=== PATIENT | male | born 1960 | race Caucasian/White ===

== ENCOUNTER 2019-07-03 16:42 | Observation (INO) | payer MEDICARE, SELFPAY ==
[2019-07-03] VITALS (16 sets, daily range): BP systolic 177–190; BP diastolic 93–112; PULSE 77–85; RESP 16–18; TEMP 36.2–36.6; O2SAT 93–99; BMI 35.0
--- NOTE | ~2019-07-03 | CT_ITS ---
EXAMINATION: CT abdomen pelvis wo con DATE: 07/03/2019 17:40 INDICATION: Left flank pain TECHNIQUE: Computed tomography (CT) of the abdomen and pelvis was performed without intravenous contr ast. The dose-length product (DLP) was 1306.16 mGy-cm. Automated exposure control and iterative recon struction technique were employed. COMPARISON: None FINDINGS: There is mild emphysema of the visualized lung bases. A calcified nodule of the left lower lobe is consistent with old granulomatous disease. The heart size is normal. There is a 2.2 cm cyst o f the left hepatic lobe. The spleen, pancreas, gallbladder, and adrenal glands are normal. The kidney s are unremarkable. No stones are identified in the kidneys, ureters, or bladder. There is no hydrone phrosis or hydroureter. No pathologically enlarged abdominal or pelvic lymph nodes are identified. Th ere is no free intraperitoneal gas or evidence of bowel obstruction. The appendix is normal. There is a tiny focus of inflammatory stranding adjacent to the descending colon at the level of the splenic flexure. There is moderate lumbar spondylosis. IMPRESSION: 1. Minimal inflammatory change of the colon at the splenic flexure which likely reflects mild diverti culitis or less likely focal colitis. Reviewed, dictated and finalized at location A. IMPRESSION: 1. Minimal inflammatory change of the colon at the splenic flexure which likely reflects mild diverticulitis or less likely focal colitis.
--- NOTE | ~2019-07-03 | XR_ITS ---
EXAMINATION: XR abdomen/kub 1V INDICATION: Left flank pain TECHNIQUE: Supine views of the abdomen were obtained on 2 radiographs. COMPARISON: None FINDINGS: The bowel gas pattern is normal. There are no dilated small bowel. Multiple phleboliths are noted in the pelvis. There is moderate lumbar spondylosis. The lung bases are clear. IMPRESSION: 1. No radiographic correlate for the patient's symptoms. Reviewed, dictated and finalized at location A.
--- NOTE | 2019-07-03 17:00 | ED.ABDPAIN ---
HPI - Abdominal Pain General Chief Complaint: Urogenital-Male Stated Complaint: L Flank pain Time Seen by Provider: 07/03/19 16:44 Source: patient Mode of arrival: ambulatory Limitations: no limitations History of Present Illness HPI narrative: Patient is a 58-year-old male who presents to emergency department for evaluation of flank pain in the left flank that began acutely today as a sharp stabbing pain that is persisted patient notes some nausea denies any other complaints injury or trauma does note history of having had a kidney stone in the past Related Data Allergies Allergy/AdvReac Type Severity Reaction Status Date / Time hydrocodone Allergy Intermediate eyes Verified 01/09/13 14:14 rolled back in head/ vomiting codeine Allergy Mild nausea/vomi Verified 01/09/13 14:13 ting Review of Systems Review of Systems: All systems reviewed & are unremarkable except as noted in HPI and below PMFSH Past Medical History Medical History (Updated 07/03/19 @ 19:13 by Salbador Fuller PA-C) Hypertension Urolithiasis Surgical History Surgical History (Updated 07/03/19 @ 17:05 by Salbador Fuller PA-C) History of orthopedic surgery Social History Social History (Updated 07/03/19 @ 17:05 by Salbador Fuller PA-C) Smoking status: Former smoker Exam Narrative: Exam Narrative: GENERAL: Well-appearing, well-nourished, and in no acute distress. HEAD: Normocephalic, atraumatic. EYES: PERRLA and EOMI. ENT: Nares clear, no rhinorrhea or epistaxis. Mucous membranes moist. NECK: Supple. No adenopathy or masses. CHEST: Clear to auscultation. No respiratory distress. No wheezes rales or rhonchi HEART: Regular rate and rhythm. No murmur heard. Normal peripheral pulses. ABDOMEN: Soft, tenderness to the left flank, distended EXTREMITIES: Normal range of motion. No edema. SKIN: Warm, dry, no rash. NEURO: No focal deficits. Alert and oriented x3. PSYCH: Normal mood and affect. Course Course Emergency Course: Patient in the room continued to have pain distress will be kept in hospital overnight hydrated given IV antibiotics with repeat blood work in the morning Consultations Consultation #1: Discussed case with hospitalist who is agreed to accept the patient Date: 07/03/19 Time: 19:12 Vital Signs Vital signs: Vital Signs Temperature 97.9 F 07/03/19 16:49 Pulse Rate 85 07/03/19 16:49 Respiratory Rate 16 07/03/19 16:49 Blood Pressure 177/112 H 07/03/19 16:49 Pulse Oximetry 98 07/03/19 16:49 Temperature 97.9 F 07/03/19 16:49 Pulse Rate 85 07/03/19 16:49 Respiratory Rate 16 07/03/19 16:49 Blood Pressure 177/112 H 07/03/19 16:49 Pulse Oximetry 98 07/03/19 16:49 MDM - Abdominal Pain MDM Narrative Medical decision making narrative: Patient in the room hydrated the emergency department and IV antibiotics initiated will be observed overnight to rule out pancreatitis will be also treated for colitis given the findings. Patient afebrile nontoxic-appearing at this time Lab Data Result diagrams: 07/03/19 16:56 07/03/19 16:56 Labs: Lab Results 07/03/19 07/03/19 07/03/19 Range/Units 16:56 16:56 16:56 WBC Pending RBC Pending Hgb Pending Hct Pending MCV Pending MCH Pending MCHC Pending RDW Pending Plt Count Pending MPV Pending Immature Gran % (Auto) Pending Neut % (Auto) Pending Lymph % (Auto) Pending [place] % (Auto) Pending Eos % (Auto) Pending Baso % (Auto) Pending Lymph # (Auto) Pending [place] # (Auto) Pending Eos # (Auto) Pending Baso # (Auto) Pending Abs Immat Gran (auto) Pending Absolute Neuts (auto) Pending Absolute Nucleated RBC Pending Nucleated RBC % Pending Sodium Pending Potassium Pending Chloride Pending Carbon Dioxide Pending BUN Pending Creatinine Pending
[2019-07-03 17:02] LABS: Basophils Percent Auto 0.3 % (0.2-1.2); Eosinophils Absolute Auto 0.1 K/mm3 (0-0.3); Eosinophils Percent Auto 0.8 % (0-4.4); Hematocrit 48.6 % (42.0-52.0); Immature Granulocyte Absolute 0.08 K/mm3 (0.00-0.031); Immature Granulocyte Percent A 0.8 % (0-0.5); Lymphocytes Absolute Auto 2.89 K/mm3 (0.9-3.2); Lymphocytes Percent Auto 29.9 % (18.3-44.2); Mean Corpuscular HGB Conc 32.9 g/dl (32-36); Mean Corpuscular Hemoglobin 29.5 pg (26-34); Mean Corpuscular Volume 89.5 fl (80-100); Mean Platelet Volume 9.6 fl (7.4-10.4); Monocytes Absolute Auto 0.7 K/mm3 (0.1-0.6); Monocytes Percent Auto 7.6 % (2.6-8.5); Neutrophils Absolute Auto 5.9 K/mm3 (1.3-6.7); Neutrophils Percent Auto 60.6 % (45.5-73.1); Platelet Count Result 296 k/mm3 (150-375); Red Blood Count 5.43 M/mm3 (4.6-6.20); Red Cell Distribution Width 12.3 % (11.5-14.5); White Blood Count 9.7 K/mm3 (4.5-10.0)
[2019-07-03 17:05] LABS: Add Urine Microscopic? YES; Appearance Urine Clear (Clear); Bilirubin Urine Negative (Negative); Blood Urine Negative (Negative); Color Urine Yellow (Yellow); Glucose Urine UA 1+ mg/dL (Negative); Ketones Urine Negative (Negative); Leukocyte Esterase Ur Negative LEU/UL (Negative); Mucus Urine Rare /lpf; Nitrate Urine Negative (Negative); Protein Urine Negative (Negative); RBC Urine 0-2 /hpf (0-2); Specific Grav Ur 1.024 (1.001-1.035); Urobilinogen Urine Negative mg/dL (<2.0); WBC Urine 0-3 /hpf
[2019-07-03 17:18] LABS: Alanine Aminotransferase 36 U/L (4-50); Albumin Level 4.9 g/dL (3.5-5.1); Alkaline Phosphatase 94 U/L (38-126); Aspartate Amino Transferase 29 U/L (17-59); Bilirubin,Total 0.4 mg/dL (0.2-1.3); Blood Urea Nitrogen 17 mg/dL (9-20); Calcium 8.9 mg/dL (8.4-10.2); Carbon Dioxide 27 mmol/L (22-30); Chloride 103 mmol/L (98-107); Estimated CRCL calculation 125 ml/min; Estimated Glomerular Filt Rate > 60; Glucose 95 mg/dL (75-110); Potassium 4.4 mmol/L (3.4-5.0); Sodium 137 mmol/L (137-145)
[2019-07-03] MEDS: SODIUM CHLORIDE 0.9% IV 1,000 ML 999 ML IV CONT (17:20)
[2019-07-03] MEDS: FAMOTIDINE 20 MG/2 ML VIAL IV PUSH ×2 (17:21→21:43)
[2019-07-03 17:38] LABS: Lipase 797 U/L (23-300)
[2019-07-03] MEDS: metroNIDAZOLE 500 MG/ISO 100ML 500 MG/100 ML BAG 100 MG IVPB ×2 (19:30→23:31)
[2019-07-03] MEDS: MORPHINE SULFATE 4 MG/ML INJ IV PUSH ×2 (19:30→21:39)
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
--- NOTE | 2019-07-03 21:40 | PC.NURSE ---
This patient, Terell Mcgovern, was admitted to Medical Room 349-01. Patient/family oriented to hospital policies and general routines including ID bracelet, bed and alarms, visiting hours, pain management, procedures, bathroom and other care routines, personal items, smoking policy, room service/diet, and visiting hours. Valuables list has been completed. Information on how to activate the Rapid Response Team has been discussed. Patient/Family are encouraged to report perceived risks to care and to ask questions if they do not understand what they are told or what they should do.
[2019-07-03] MEDS: CIPROFLOXACIN 400 MG/D5W 200ML 200 ML 200 MG IVPB (21:43)
[2019-07-03] MEDS: SODIUM CHLORIDE 0.9% IV 1,000 ML 125 ML IV CONT (23:24)
[2019-07-04] MEDS: MORPHINE SULFATE 4 MG/ML INJ IV PUSH (04:19)
[2019-07-04 04:21] VITALS: BP 150/90; PULSE 65; RESP 16; TEMP 36.6; O2SAT 95
[2019-07-04] MEDS: metroNIDAZOLE 500 MG/ISO 100ML 500 MG/100 ML BAG 100 MG IVPB ×3 (05:09→21:22)
[2019-07-04 06:53] LABS: Basophils Percent Auto 0.4 % (0.2-1.2); Eosinophils Absolute Auto 0.1 K/mm3 (0-0.3); Eosinophils Percent Auto 1.2 % (0-4.4); Hematocrit 41.8 % (42.0-52.0); Hemoglobin 13.9 g/dL (14.0-18.0); Immature Granulocyte Absolute 0.04 K/mm3 (0.00-0.031); Immature Granulocyte Percent A 0.5 % (0-0.5); Lymphocytes Absolute Auto 2.12 K/mm3 (0.9-3.2); Lymphocytes Percent Auto 28.8 % (18.3-44.2); Mean Corpuscular HGB Conc 33.3 g/dl (32-36); Mean Corpuscular Hemoglobin 29.6 pg (26-34); Mean Corpuscular Volume 89.1 fl (80-100); Mean Platelet Volume 9.5 fl (7.4-10.4); Monocytes Absolute Auto 0.8 K/mm3 (0.1-0.6); Monocytes Percent Auto 10.2 % (2.6-8.5); Neutrophils Absolute Auto 4.3 K/mm3 (1.3-6.7); Neutrophils Percent Auto 58.9 % (45.5-73.1); Platelet Count Result 226 k/mm3 (150-375); Red Blood Count 4.69 M/mm3 (4.6-6.20); Red Cell Distribution Width 12.3 % (11.5-14.5); White Blood Count 7.4 K/mm3 (4.5-10.0)
[2019-07-04 07:06] LABS: Alanine Aminotransferase 31 U/L (4-50); Albumin Level 3.6 g/dL (3.5-5.1); Alkaline Phosphatase 76 U/L (38-126); Aspartate Amino Transferase 26 U/L (17-59); Bilirubin,Total 0.6 mg/dL (0.2-1.3); Blood Urea Nitrogen 12 mg/dL (9-20); Calcium 7.9 mg/dL (8.4-10.2); Carbon Dioxide 26 mmol/L (22-30); Chloride 105 mmol/L (98-107); Estimated CRCL calculation 145 ml/min; Estimated Glomerular Filt Rate > 60; Glucose 105 mg/dL (75-110); Lipase 137 U/L (23-300); Potassium 3.7 mmol/L (3.4-5.0); Sodium 137 mmol/L (137-145)
[2019-07-04 09:00] VITALS: BP 159/79; PULSE 74; O2SAT 100
[2019-07-04] MEDS: CIPROFLOXACIN 400 MG/D5W 200ML 200 ML 200 MG IVPB ×2 (09:08→21:18)
[2019-07-04] MEDS: MONTELUKAST SODIUM 10 MG TABLET PO (09:08)
[2019-07-04] MEDS: FAMOTIDINE 20 MG/2 ML VIAL IV PUSH ×2 (09:08→21:18)
[2019-07-04 09:09] VITALS: PULSE 74
[2019-07-04] MEDS: METOPROLOL TARTRATE 25 MG TABLET PO ×2 (09:09→16:06)
[2019-07-04] MEDS: SODIUM CHLORIDE 0.9% IV 1,000 ML 100 ML IV CONT (11:49)
--- NOTE | 2019-07-04 13:43 | PM.IMPN ---
Progress Note: A&P Assessment and Plan (1) Diverticulitis: Code(s): K57.92 - Diverticulitis of intestine, part unspecified, without perforation or abscess without bleeding Status: Acute Assessment and Plan: CT of the abdomen and pelvis shows findings of mild diverticulitis or less likely focal colitis at the splenic flexure. Pain has improved today. VSS, afebrile. WBC 7.4k Will continue IV Cipro and flagyl Will advance diet to low fiber/soft diet this evening Monitor overnight If continued improvement, likely discharge in 1-2 days on oral antibiotics for 7-10 course He will need a colonoscopy in the next couple of months. Follow up with PCP (2) Elevated lipase: Code(s): R74.8 - Abnormal levels of other serum enzymes Status: Acute Assessment and Plan: Etiology not entirely clear, but may be due to inflammation around the splenic flexure. Lipase WNL today Will advance diet to low fiber/soft diet (3) Hypertension: Code(s): I10 - Essential (primary) hypertension Status: Acute Assessment and Plan: Blood pressures 150s sys today; improved. Elevated BP possibly secondary to pain Continue with his antihypertensives and monitor closely. He may very well need adjustments in his dosing. Likely will have patient follow up with PCP for further adjustments (4) Rheumatoid arthritis: Code(s): M06.9 - Rheumatoid arthritis, unspecified Status: Acute Assessment and Plan: Patient is on methotrexate weekly, but this is currently on hold due to COVID-19 pandemic. Subjective Date/time seen: 07/04/19 13:43 Interval history: Patient is a 58 yo M with history of rheumatoid arthritis, hypertension, hyperlipidemia, and coronary artery disease with history of [place] who is her for treatment of diverticulitis. Patient states that his LLQ pain has improved today, using narcotics only this morning. He is tolerating his diet as well. He is anxious to return home as soon as possible. He has no other complaints at the moment. He is open to advancing his diet. Denies f/c/s, myalgias/arthralgias, headaches, dizziness, lightheadedness, changes in v/h, cp/palpitations, sob/cough outside of his norm, n/v/d/c, changes in BMs, dysuria, hematuria, cloudy urine, calf pain/swelling. Review of Systems Review of Systems: All systems reviewed & are unremarkable except as noted in HPI and below Exam Narrative: Exam Narrative: Patient lying supine in bed at time of visit Const: General: cooperative, comfortable, no acute distress, well developed and alert Nutritional Appearance: well nourished and obese Orientation/consciousness: patient oriented x3 HENMT: Head: normocephalic and atraumatic General nose exam: Normal nares present Face and sinus: face symmetric Mouth: Yes moist mucous membranes Teeth and gingiva: fair dentition Throat: uvula midline Eyes: General: appearance normal, both eyes and all related structures EOM: EOMs intact bilaterally Neck: Neck: trachea midline and supple Resp: Effort & Inspection: normal respiratory effort Auscultation: clear to auscultation bilaterally and diminished lung sounds Cardio: Rate: regular rate Rhythm: regular rhythm Heart sounds: no murmurs GI: Inspection: obesity GI Palp: Yes abdominal tenderness (LLQ) and Yes Soft to palpation Auscultation: Hypoactive bowel sounds present Skin: General skin exam: normal color and no rashes or lesions noted Neuro: General: patient oriented x3, moves all extremities and no focal motor deficits Speech: normal speech Extrem: Right lower extremity: no edema Left lower extremity: no edema Other: NTTP b/l calves Psych: Mental Status: mental status grossly normal Affect: normal affect Object
[2019-07-04 14:00] VITALS: BP 129/76; PULSE 62; RESP 16; TEMP 36.2; O2SAT 99
[2019-07-04 16:06] VITALS: PULSE 57
[2019-07-04] MEDS: IBUPROFEN 600 MG TABLET PO (16:10)
[2019-07-04 20:52] VITALS: BP 113/78; PULSE 67; RESP 14; TEMP 36.8; O2SAT 97
[2019-07-04] MEDS: ALPRAZOLAM 0.5 MG TABLET PO (22:36)
[2019-07-05] MEDS: SODIUM CHLORIDE 0.9% IV 1,000 ML 100 ML IV CONT (04:10)
[2019-07-05 05:19] VITALS: BP 143/70; PULSE 59; RESP 16; TEMP 36.3; O2SAT 95
[2019-07-05] MEDS: metroNIDAZOLE 500 MG/ISO 100ML 500 MG/100 ML BAG 100 MG IVPB (05:25)
[2019-07-05 06:30] LABS: Basophils Percent Auto 0.3 % (0.2-1.2); Eosinophils Absolute Auto 0.2 K/mm3 (0-0.3); Eosinophils Percent Auto 2.4 % (0-4.4); Hematocrit 42.1 % (42.0-52.0); Hemoglobin 13.8 g/dL (14.0-18.0); Immature Granulocyte Absolute 0.06 K/mm3 (0.00-0.031); Lymphocytes Absolute Auto 2.25 K/mm3 (0.9-3.2); Lymphocytes Percent Auto 36.4 % (18.3-44.2); Mean Corpuscular HGB Conc 32.8 g/dl (32-36); Mean Corpuscular Hemoglobin 29.2 pg (26-34); Mean Corpuscular Volume 89.2 fl (80-100); Mean Platelet Volume 9.4 fl (7.4-10.4); Monocytes Absolute Auto 0.6 K/mm3 (0.1-0.6); Monocytes Percent Auto 10.2 % (2.6-8.5); Neutrophils Absolute Auto 3.1 K/mm3 (1.3-6.7); Neutrophils Percent Auto 49.7 % (45.5-73.1); Platelet Count Result 229 k/mm3 (150-375); Red Blood Count 4.72 M/mm3 (4.6-6.20); Red Cell Distribution Width 12.2 % (11.5-14.5); White Blood Count 6.2 K/mm3 (4.5-10.0)
[2019-07-05 06:41] LABS: Alanine Aminotransferase 31 U/L (4-50); Albumin Level 3.7 g/dL (3.5-5.1); Alkaline Phosphatase 77 U/L (38-126); Aspartate Amino Transferase 27 U/L (17-59); Bilirubin,Total 0.7 mg/dL (0.2-1.3); Blood Urea Nitrogen 9 mg/dL (9-20); Calcium 8.6 mg/dL (8.4-10.2); Carbon Dioxide 29 mmol/L (22-30); Chloride 106 mmol/L (98-107); Estimated CRCL calculation 145 ml/min; Estimated Glomerular Filt Rate > 60; Glucose 106 mg/dL (75-110); Lipase 70 U/L (23-300); Potassium 3.6 mmol/L (3.4-5.0); Sodium 139 mmol/L (137-145)
[2019-07-05] MEDS: FAMOTIDINE 20 MG/2 ML VIAL IV PUSH (08:27)
[2019-07-05] MEDS: POTASSIUM CHLORIDE 20 MEQ TABLET 40 MEQ PO (08:27)
[2019-07-05] MEDS: CIPROFLOXACIN 400 MG/D5W 200ML 200 ML 200 MG IVPB (08:27)
[2019-07-05] MEDS: MONTELUKAST SODIUM 10 MG TABLET PO (08:27)
--- NOTE | 2019-07-05 08:28 | PM.DS ---
DS: Diagnosis Admitting Diagnosis Admitting Diagnosis: Diverticulitis of intestine, part unspecified, without perforation or abscess without bleeding Discharge Diagnosis (1) Diverticulitis: Code(s): K57.92 - Diverticulitis of intestine, part unspecified, without perforation or abscess without bleeding Status: Acute Assessment and Plan: CT of the abdomen and pelvis shows findings of mild diverticulitis or less likely focal colitis at the splenic flexure. Pain has improved again today. VSS, afebrile. WBC 6.2k. Patient comfortable for discharge today Will continue PO Cipro and flagyl after discharge through 07/12 (10 day total antibiotic course) Will continue low fiber/soft diet after discharge and advancing as tolerated. High fiber after antibiotic course Follow up with PCP in 1-2 weeks [employer] consult placed whom spoke with patient about diet He will need a colonoscopy in the next couple of months. Follow up with PCP (2) Elevated lipase: Code(s): R74.8 - Abnormal levels of other serum enzymes Status: Acute Assessment and Plan: Etiology not entirely clear, but may be due to inflammation around the splenic flexure. Lipase WNL today Will continue with low fiber/soft diet (3) Hypertension: Code(s): I10 - Essential (primary) hypertension Status: Acute Assessment and Plan: Blood pressures 140s sys today; improved. Elevated BP possibly secondary to pain Continue with his antihypertensives and follow up with PCP Recommend measuring daily BPs prior to next PCP visit (4) Rheumatoid arthritis: Code(s): M06.9 - Rheumatoid arthritis, unspecified Status: Acute Assessment and Plan: Patient is on methotrexate weekly, but this is currently on hold due to COVID-19 pandemic. DS: Summary Hospital Course Reason for hospitalization: Diverticulitis vs less likely focal colitis on CT imaging Hospital Course: Patient is a 58 yo M with history of RA, hypertension, hyperlipidemia, and coronary artery disease with history of [place] who presented to the emergency department on afternoon of 07/02 via private vehicle from home for evaluation of left-sided abdominal pain. Patient stated pain started on 06/29 with gradual onset of left-sided abd pain that became more constant over the following days. He had intermittent nausea without vomiting and bloating. While in the ER, CT of the abd/pelvis showed findings suggestive of possible diverticulitis versus less likely focal colitis. Lipase was slightly elevated at 797. No recent antibiotic use. Please see H&P for further details. Presenting VS: Temp Pulse Resp BP Pulse Ox 97.9 F 85 16 177/112 H 98 RA 07/03/19 16:49 07/03/19 16:49 07/03/19 16:49 07/03/19 16:49 07/03/19 16:49 Presenting Pertinent labs: Lipase 797 (07/04: 70). CBC, CMP, UA otherwise unremarkable Micro: none Imaging: Abdomen/Pelvis CT 07/03/19 17:49 IMPRESSION: 1. Minimal inflammatory change of the colon at the splenic flexure which likely reflects mild diverticulitis or less likely focal colitis. Abdomen X-Ray 07/03/19 18:04 IMPRESSION: 1. No radiographic correlate for the patient's symptoms. ECG: none Patient was admitted to the hospitalist service for further evaluation and treatment of likely diverticulitis vs colitis. Patient was placed on Cipro and Flagyl and CLD was started upon admission as pain had appeared to improve. Over the course of his stay, diet was advanced to soft, low fiber diet, which he tolerated well. Antibiotics continued and plan was for him to finish a course of 10 total days of antibiotics. Patient had clinically improved by day of discharge and was agreeable and comfortable with plan to continue diet and antibiotics and switch to high
[2019-07-05 08:32] VITALS: PULSE 64
[2019-07-05] MEDS: METOPROLOL TARTRATE 25 MG TABLET PO (08:32)
--- NOTE | 2019-07-05 09:22 | PCDIET ---
Dietitian Consult for Diverticulitis. Patient called due to COVID 19 precautions, educated today on low fiber/high fiber diet. All info is in the discharge instructions. Thank you for the consult.
== END 2019-07-05 11:10 | disposition home or self-care (01) ==
LOC: ANHED 19:16 → ANH3MED 23:12
PROVIDERS: Emergency Medicine Emergency Medical Services; Admitting Provider Internal Medicine; Emergency Provider Emergency Medicine; PCP Internal Medicine; Visit Provider Physician Assistant
DX: K57.92 Diverticulitis of intestine, part unspecified, without perforation or abscess without bleeding (principal); R74.8 Abnormal levels of other serum enzymes; I10 Essential (primary) hypertension; M06.9 Rheumatoid arthritis, unspecified; I25.10 Atherosclerotic heart disease of native coronary artery without angina pectoris; I25.2 Old myocardial infarction; E78.5 Hyperlipidemia, unspecified; Z79.82 Long term (current) use of aspirin; Z79.899 Other long term (current) drug therapy; Z87.891 Personal history of nicotine dependence
CPT/HCPCS: 36415; 74018; 74176; 80053; 81001; 83690; 85025; 96361; 96365; 96366; 96367; 96375; 96376; 99285; A9270; G0378; J0744; J2270; J7030

== ENCOUNTER 2019-08-15 00:26 | Outpatient (CLI) | payer MEDICARE, SELFPAY ==
[2019-08-15 18:39] LABS: SARS-CoV-2 RNA PCR Negative
== END 2019-08-15 00:27 | disposition home or self-care (01) ==
LOC: ANHCOVIDDT 00:26
PROVIDERS: PCP Internal Medicine; Visit Provider Internal Medicine Gastroenterology
DX: Z01.818 Encounter for other preprocedural examination (principal); Z11.59 Encounter for screening for other viral diseases
CPT/HCPCS: 87635; C9803; U0003

== ENCOUNTER 2019-08-17 01:16 | Day surgery (SDC) | payer MEDICARE, SELFPAY ==
[2019-08-14 14:05] VITALS: BMI 32.8
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
[2019-08-17 07:09] VITALS: BP 149/110; PULSE 81; RESP 16; TEMP 36.3; O2SAT 97; BMI 33.3
[2019-08-17] MEDS: LACTATED RINGERS 1,000 ML 150 ML IV CONT (07:24)
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
[2019-08-17] MEDS: SIMETHICONE ORAL SUSPENSION 20 MG/0.3 ML 30 ML BOTTLE 0.6 ML IRRIGATION (08:22)
[2019-08-17 08:28] VITALS: BP 120/68; PULSE 75; RESP 23; O2SAT 96
[2019-08-17 08:38] VITALS: BP 117/60; PULSE 71; RESP 20; O2SAT 96
[2019-08-17 08:48] VITALS: BP 130/72; PULSE 68; RESP 20; O2SAT 97
== END 2019-08-17 08:58 | disposition home or self-care (01) ==
PROVIDERS: PCP Internal Medicine; Visit Provider Internal Medicine Gastroenterology
PROC: 0DJD8ZZ Inspection of Lower Intestinal Tract, Via Natural or Artificial Opening Endoscopic (ICD-10-PCS; CPT 45378; principal; 2019-08-17 08:00)
DX: K63.5 Polyp of colon (principal); R10.84 Generalized abdominal pain; I25.10 Atherosclerotic heart disease of native coronary artery without angina pectoris; I10 Essential (primary) hypertension; I25.2 Old myocardial infarction; J44.9 Chronic obstructive pulmonary disease, unspecified; M06.9 Rheumatoid arthritis, unspecified; K21.9 Gastro-esophageal reflux disease without esophagitis; Z86.73 Personal history of transient ischemic attack (TIA), and cerebral infarction without residual deficits; M54.9 Dorsalgia, unspecified; G89.29 Other chronic pain; F41.9 Anxiety disorder, unspecified; Z87.891 Personal history of nicotine dependence; F12.90 Cannabis use, unspecified, uncomplicated; E66.9 Obesity, unspecified; Z68.33 Body mass index [BMI] 33.0-33.9, adult
CPT/HCPCS: 45381; J2001; J2704; J7120

== ENCOUNTER 2020-10-30 15:14 | Emergency (ER) | payer MEDICARE, SELFPAY ==
--- NOTE | ~2020-10-30 | XR_ITS ---
EXAMINATION: XR chest 1V DATE: 10/30/2020 15:50 INDICATION: COVID positive presenting with shortness of breath TECHNIQUE: frontal view of the chest was obtained. COMPARISON: Chest radiograph dated 01/09/2013 FINDINGS: The lungs remain clear with no focal airspace opacities, pulmonary edema, pleural effusion or pneumot horax. The cardiomediastinal silhouette is normal. Postoperative changes of bilateral distal clavicle resections. Suture anchor at the right humeral head likely related to prior rotator cuff repair. IMPRESSION: 1. No acute cardiopulmonary disease. Reviewed, dictated and finalized at location A.
[2020-10-30 15:16] VITALS: BP 164/108; PULSE 115; RESP 32; TEMP 36.4; O2SAT 98
--- NOTE | 2020-10-30 15:20 | ECG_ITS ---
Measurements Intervals [place] Rate: 110 P: 44 HI: 124 QRS: 25 QRSD: 86 T: 66 QT: 318 QTc: 431 Interpretive Statements SINUS TACHYCARDIA POSSIBLE LEFT ATRIAL ENLARGEMENT DELAYED PRECORDIAL R/S TRANSITION BASELINE WANDER- I, II, III, AVR, AVL, AVF ABNORMAL ECG Electronically Signed On 10-30-2020 15:28:11 CDT by Roger Martinez D.O.
[2020-10-30 15:41] LABS: Basophils Percent Auto 0.1 % (0.2-1.2); Hematocrit 45.7 % (42.0-52.0); Immature Granulocyte Absolute 0.07 K/mm3 (0.00-0.031); Immature Granulocyte Percent A 0.7 % (0-0.5); Lymphocytes Absolute Auto 0.95 K/mm3 (0.9-3.2); Mean Corpuscular HGB Conc 32.8 g/dl (32-36); Mean Corpuscular Hemoglobin 29.5 pg (26-34); Mean Platelet Volume 9.4 fl (7.4-10.4); Monocytes Percent Auto 10.9 % (2.6-8.5); Neutrophils Absolute Auto 7.5 K/mm3 (1.3-6.7); Neutrophils Percent Auto 78.3 % (45.5-73.1); Platelet Count Result 262 k/mm3 (150-375); Red Blood Count 5.08 M/mm3 (4.6-6.20); Red Cell Distribution Width 12.7 % (11.5-14.5); White Blood Count 9.5 K/mm3 (4.5-10.0)
[2020-10-30 15:54] LABS: Anion Gap 11 mmol/L (8-16); Blood Urea Nitrogen 17 mg/dL (9-20); Calcium 8.3 mg/dL (8.4-10.2); Carbon Dioxide 22 mmol/L (22-30); Chloride 102 mmol/L (98-107); Estimated CRCL calculation 121 ml/min; Estimated Glomerular Filt Rate > 60; Glucose 105 mg/dL (65-110); Potassium 3.9 mmol/L (3.4-5.0); Sodium 135 mmol/L (137-145)
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
[2020-10-30 17:50] VITALS: BP 125/59; PULSE 93; PULSE 97; RESP 11; O2SAT 97
[2020-10-30 18:55] VITALS: BP 150/75; PULSE 89; RESP 26; O2SAT 95
== END 2020-10-30 18:56 | disposition home or self-care (01) ==
LOC: ANHED 17:41
PROVIDERS: Emergency Medicine; Emergency Provider Family Medicine; PCP Internal Medicine
DX: U07.1 COVID-19 (principal); I10 Essential (primary) hypertension; E78.00 Pure hypercholesterolemia, unspecified; I25.10 Atherosclerotic heart disease of native coronary artery without angina pectoris; R73.03 Prediabetes; J43.9 Emphysema, unspecified; K21.9 Gastro-esophageal reflux disease without esophagitis; M06.9 Rheumatoid arthritis, unspecified; Z86.73 Personal history of transient ischemic attack (TIA), and cerebral infarction without residual deficits; Z87.442 Personal history of urinary calculi; Z79.82 Long term (current) use of aspirin; Z96.652 Presence of left artificial knee joint; Z87.891 Personal history of nicotine dependence; R00.0 Tachycardia, unspecified; R94.31 Abnormal electrocardiogram [ECG] [EKG]
CPT/HCPCS: 36415; 71045; 80048; 85025; 93005; 99284